=== PATIENT | female | born 1970 | race Caucasian/White ===

== ENCOUNTER 2020-12-28 22:29 | Inpatient (IN) | payer MEDICAID ==
[~2020-12-28] VITALS: Ht 162.6 cm; Wt 77.1 kg
[~2020-12-28 22:29] MED LIST: INSU100V28 IJ
[2020-12-28] MEDS ORDERED: MORPHINE SULFATE 4 MG/ML CPJ (NOT FOR IM USE) IV STA (23:25)
[2020-12-28] MEDS ORDERED: ONDANSETRON HCL 4MG/2ML INJ IV STA (23:25)
[2020-12-28] MEDS ORDERED: VANCOMYCIN 1 G PREMIX 200 ML IV ONE (23:30)
[2020-12-28] MEDS ORDERED: CLINDAMYCIN 600 MG in DEXTROSE 5% WATER 50 ML IV ONE (23:30)
[2020-12-28] MEDS ORDERED: PIPERACILLIN/TAZ 3.375G PREMIX 50 ML IV ONE (23:30)
[2020-12-28] MEDS ORDERED: SODIUM CHLORIDE 0.9% 1,000 ML IV ONE ×2 (23:30)
[2020-12-28 23:56] LABS: BG BASE EXCESS 2.4 mmol/L (-2.0-2.0); BG CARBOXYHEMOGLOBIN 0.2 % (0.5-1.5); BG DEOXYHEMOGLOBIN 3.8 % (0.0-5.0); BG FRACTION INSPIRED OXYGEN 21; BG METHEMOGLOBIN 0.1 % (0.0-1.5); BG OXYGEN SATURATION 96.2 % (92.0-98.5); BG OXYHEMOGLOBIN 95.9 % (94.0-97.0); BG PCO2 41.7 mmHg (35.0-45.0); BG PH 7.429 (7.350-7.450); BG PO2 86.1 mmHg (75.0-100.0); BG SAMPLE SITE RIGHT RADIAL; BG TOTAL HEMOGLOBIN 9.7 g/dL (12.0-18.0); BG VENT MODE ROOM AIR
[2020-12-29] MEDS ORDERED: CLINDAMYCIN 600MG PREMIX 50 ML IV SCH
[2020-12-29 00:08] LABS: BASOPHILS % 0.7 % (0.0-2.0); EOSINOPHILS % 0.8 % (0.0-5.0); HEMOGLOBIN. 10.1 g/dL (12.0-16.0); LYMPHOCYTES % 7.8 % (20.0-50.0); MEAN CORPUSCULAR HEMOGLOBIN 29.6 pg (28.0-32.0); MEAN CORPUSCULAR VOLUME 88.1 fL (81.0-99.0); MONOCYTES % 5.5 % (2.0-8.0); NEUTROPHILS % 85.2 % (40.0-76.0); PLATELET 259 x1000/uL (130-400); RED CELL DISTRIBUTION WIDTH 13.4 % (11.6-14.6)
[2020-12-29 00:14] LABS: CHLORIDE 98 mEq/L (98-107)
[2020-12-29 00:17] LABS: INR 1.1; PROTHROMBIN TIME 11.8 sec (9.6-11.0)
[2020-12-29 00:21] LABS: BETA HYDROXYBUTYRATE 0.2 mMol/L (0.0-0.3)
[2020-12-29 01:00] LABS: CLARITY URINE CLOUDY (CLEAR); COLOR URINE ORANGE (YELLOW); KETONES URINE NEGATIVE (NEGATIVE); LEUKOCYTE ESTERASE URINE NEGATIVE (NEGATIVE); NITRITE URINE NEGATIVE (NEGATIVE); OCCULT BLOOD URINE 3+ (NEGATIVE); PH URINE 6.5 (4.5-8.0); PROTEIN URINE 2+ (NEGATIVE); SPECIFIC GRAVITY URINE 1.028 (1.005-1.030); UROBILINOGEN URINE 0.2 E.U./dL (0.2-1.0)
[2020-12-29] MEDS ORDERED: IOHEXOL-300 100 ML BOTTLE ONE (01:43)
[2020-12-29] MEDS ORDERED: LORAZEPAM 2MG/ML CPJ IV PRN (08:30)
[2020-12-29] MEDS ORDERED: DEXTROSE 50% WATER 50ML SYRINGE IV PRN (08:30)
[2020-12-29] MEDS ORDERED: GUAIFENESIN 200MG/10ML SUGAR FREE UDC PO PRN (08:30)
[2020-12-29] MEDS ORDERED: MAGNESIUM/ALUMINUM HYDROXIDE/SIMETHICONE 30ML UDC PO PRN (08:30)
[2020-12-29] MEDS ORDERED: VANCOMYCIN 1 G PREMIX 200 ML IV SCH (08:30)
[2020-12-29] MEDS ORDERED: IPRATROPIUM/ALBUTEROL 0.5-3(2.5)MG/3ML NEB HHN PRN (08:30)
[2020-12-29] MEDS ORDERED: CLONIDINE 0.1MG TABLET PO PRN (08:30)
[2020-12-29] MEDS ORDERED: ACETAMINOPHEN 325MG TABLET PO PRN (08:30)
[2020-12-29] MEDS ORDERED: HYDRALAZINE 20MG/ML VIAL IV PRN (08:30)
[2020-12-29] MEDS ORDERED: ONDANSETRON HCL 4MG/2ML INJ IV PRN (08:30)
[2020-12-29] MEDS ORDERED: DOCUSATE SODIUM 100MG CAPSULE PO PRN (08:30)
[2020-12-29] MEDS ORDERED: DIPHENHYDRAMINE 50MG/ML VIAL IV PRN (08:30)
[2020-12-29] MEDS ORDERED: ENOXAPARIN 40MG/0.4ML SYR SUBCUT SCH (09:00)
[2020-12-29] MEDS ORDERED: PIPERACILLIN/TAZ 3.375G PREMIX 50 ML IV SCH (09:00)
[2020-12-29] MEDS: SODIUM CHLORIDE 0.45% 1,000 ML IV SCH ×2 (09:39→21:02)
[2020-12-29] MEDS: MORPHINE SULFATE 2 MG/ML CPJ (NOT FOR IM USE) IV PRN (09:40)
[2020-12-29] MEDS: INSULIN LISPRO 100 UNITS/ML SUBCUT SCH ×4 (09:41→21:00)
[2020-12-29] MEDS: BLOOD SUGAR DIAGNOSTIC STRIP TEST SCH ×4 (09:41→21:01)
[2020-12-29] MEDS ORDERED: INSULIN GLARGINE UD 100 UNITS/ML SYR SUBCUT SCH (10:00)
[2020-12-29] MEDS: SODIUM CHLORIDE 0.9% INJ 3ML FLUSH IVF SCH ×2 (14:26→21:30)
[2020-12-29] MEDS: HYDROCODONE/ACETAMINOPHEN 5/325MG TABLET PO PRN ×2 (15:50→21:31)
[2020-12-29 16:00] VITALS: BP 149/71
[2020-12-29] MEDS ORDERED: SORBITOL 70% SOLN 30ML PO NR ×2 (16:00→20:00)
[2020-12-29 20:00] VITALS: BP 114/61
[2020-12-29] MEDS: PIPERACILLIN/TAZOBACTAM 3.375 G in DEXT 5% WATER 100 ML IV SCH (20:58)
[2020-12-29] MEDS: VANCOMYCIN 1 G PREMIX 200 ML IV SCH (23:46)
[2020-12-30] VITALS: BP 128/66
[2020-12-30] MEDS: PIPERACILLIN/TAZOBACTAM 3.375 G in DEXT 5% WATER 100 ML IV SCH ×4 (02:51→21:02)
[2020-12-30 04:00] VITALS: BP 130/71
[2020-12-30] MEDS ORDERED: BISACODYL 5MG TABLET PO PRN (05:30)
[2020-12-30] MEDS ORDERED: METOCLOPRAMIDE HCL 10MG/2ML VIAL IV NR ×2 (05:45→09:00)
[2020-12-30] MEDS: BLOOD SUGAR DIAGNOSTIC STRIP TEST SCH ×4 (05:54→20:31)
[2020-12-30 05:59] LABS: INR 1.1; PROTHROMBIN TIME 11.9 sec (9.6-11.0)
[2020-12-30] MEDS ORDERED: BISACODYL 5MG TABLET PO NR (06:00)
[2020-12-30] MEDS ORDERED: SORBITOL 70% SOLN 30ML PO NR (06:00)
[2020-12-30 06:06] LABS: CHLORIDE 106 mEq/L (98-107)
[2020-12-30] MEDS: SODIUM CHLORIDE 0.9% INJ 3ML FLUSH IVF SCH ×3 (06:07→21:03)
[2020-12-30] MEDS: INSULIN LISPRO 100 UNITS/ML SUBCUT SCH ×4 (06:07→21:02)
[2020-12-30 08:00] VITALS: BP 141/71
[2020-12-30 09:00] LABS: BASOPHILS % 0.3 % (0.0-2.0); EOSINOPHILS % 0.8 % (0.0-5.0); HEMATOCRIT. 26.8 % (36.0-48.0); LYMPHOCYTES % 10.1 % (20.0-50.0); MEAN CORPUSCULAR HEMOGLOBIN 28.7 pg (28.0-32.0); MEAN CORPUSCULAR VOLUME 85.5 fL (81.0-99.0); MEAN PLATELET VOLUME 8.2 fl (7.4-10.4); MONOCYTES % 6.6 % (2.0-8.0); NEUTROPHILS % 82.2 % (40.0-76.0); PLATELET 292 x1000/uL (130-400); RED BLOOD CELL COUNT 3.13 mill/uL (4.2-5.4); RED CELL DISTRIBUTION WIDTH 13.6 % (11.6-14.6)
[2020-12-30 10:38] LABS: HCG SCREEN NEGATIVE
[2020-12-30] MEDS: SODIUM CHLORIDE 0.45% 1,000 ML IV SCH (11:38)
[2020-12-30] MEDS ORDERED: SIMETHICONE 40 MG/0.6 ML 30ML ONE (11:48)
[2020-12-30 12:00] VITALS: BP 148/90
[2020-12-30] MEDS: VANCOMYCIN 1 G PREMIX 200 ML IV SCH (12:00)
[2020-12-30] MEDS: INSULIN GLARGINE UD 100 UNITS/ML SYR SUBCUT SCH (13:00)
[2020-12-30] MEDS ORDERED: MIDAZOLAM HCL 5 MG/5 ML VIAL ONE (13:23)
[2020-12-30] MEDS ORDERED: FENTANYL CITRATE/PF 50MCG/ML 2ML VIAL ONE (13:24)
[2020-12-30] MEDS ORDERED: FENTANYL CITRATE/PF 50MCG/ML 2ML VIAL IV PRN (13:35)
[2020-12-30] MEDS ORDERED: MIDAZOLAM HCL 5 MG/5 ML VIAL IV PRN (13:36)
[2020-12-30] MEDS ORDERED: DIAZEPAM 5 MG/ML 2ML CPJ IV PRN (13:39)
[2020-12-30] MEDS ORDERED: DIAZEPAM 5 MG/ML 2ML CPJ ONE (13:47)
[2020-12-30 16:00] VITALS: BP 115/71
[2020-12-30 20:00] VITALS: BP 153/72
[2020-12-30] MEDS: HYDROCODONE/ACETAMINOPHEN 5/325MG TABLET PO PRN (21:19)
[2020-12-31] VITALS: BP 150/82
[2020-12-31] MEDS: PIPERACILLIN/TAZOBACTAM 3.375 G in DEXT 5% WATER 100 ML IV SCH ×4 (02:15→21:55)
[2020-12-31 03:36] LABS: BASOPHILS % 0.6 % (0.0-2.0); EOSINOPHILS % 2.3 % (0.0-5.0); HEMATOCRIT. 25.4 % (36.0-48.0); HEMOGLOBIN. 8.5 g/dL (12.0-16.0); LYMPHOCYTES % 18.2 % (20.0-50.0); MEAN CORPUSCULAR HEMOGLOBIN 28.7 pg (28.0-32.0); MEAN CORPUSCULAR VOLUME 85.8 fL (81.0-99.0); MEAN PLATELET VOLUME 7.9 fl (7.4-10.4); MONOCYTES % 6.9 % (2.0-8.0); PLATELET 266 x1000/uL (130-400); RED BLOOD CELL COUNT 2.96 mill/uL (4.2-5.4); RED CELL DISTRIBUTION WIDTH 13.7 % (11.6-14.6)
[2020-12-31 04:00] VITALS: BP 159/72
[2020-12-31] MEDS: VANCOMYCIN 1 G PREMIX 200 ML IV SCH (05:18)
[2020-12-31] MEDS: SODIUM CHLORIDE 0.9% INJ 3ML FLUSH IVF SCH ×3 (05:18→22:00)
[2020-12-31] MEDS: HYDROCODONE/ACETAMINOPHEN 5/325MG TABLET PO PRN (05:24)
[2020-12-31] MEDS: BLOOD SUGAR DIAGNOSTIC STRIP TEST SCH ×4 (07:01→21:02)
[2020-12-31] MEDS: INSULIN LISPRO 100 UNITS/ML SUBCUT SCH ×4 (07:10→22:01)
[2020-12-31 08:00] VITALS: BP 150/67
[2020-12-31] MEDS: SODIUM CHLORIDE 0.45% 1,000 ML IV SCH ×2 (08:53→15:51)
[2020-12-31] MEDS: INSULIN GLARGINE UD 100 UNITS/ML SYR SUBCUT SCH (10:09)
[2020-12-31] MEDS ORDERED: LIDOCAINE HCL 1% 20ML VIAL (Pyxis) INJ INFIL NR (11:30)
[2020-12-31 12:00] VITALS: BP 155/80
[2020-12-31 16:00] VITALS: BP 143/73
[2020-12-31 20:00] VITALS: BP 146/65
[2020-12-31] MEDS: MORPHINE SULFATE 2 MG/ML CPJ (NOT FOR IM USE) IV PRN (22:12)
[2021-01-01] VITALS: BP 152/70
[2021-01-01] MEDS: PIPERACILLIN/TAZOBACTAM 3.375 G in DEXT 5% WATER 100 ML IV SCH ×2 (02:16→08:42)
[2021-01-01] MEDS: HYDROCODONE/ACETAMINOPHEN 5/325MG TABLET PO PRN (03:47)
[2021-01-01 04:00] VITALS: BP 152/56
[2021-01-01] MEDS ORDERED: VANCOMYCIN 1 G PREMIX 200 ML IV SCH (06:00)
[2021-01-01] MEDS: BLOOD SUGAR DIAGNOSTIC STRIP TEST SCH ×2 (06:45→12:21)
[2021-01-01] MEDS: SODIUM CHLORIDE 0.9% INJ 3ML FLUSH IVF SCH (06:46)
[2021-01-01] MEDS: INSULIN LISPRO 100 UNITS/ML SUBCUT SCH ×2 (06:47→12:21)
[2021-01-01 08:00] VITALS: BP 169/93
[2021-01-01 09:12] LABS: IMMUNOGLOBULIN A 595 mg/dL (87-352); IMMUNOGLOBULIN G 1076 mg/dL (586-1602)
[2021-01-01] MEDS: INSULIN GLARGINE UD 100 UNITS/ML SYR SUBCUT SCH (09:29)
[2021-01-01 12:00] VITALS: BP 160/78
[2021-01-01 12:56] VITALS: BP 160/93
[2021-01-01] MEDS ORDERED: INSULIN GLARGINE UD 100 UNITS/ML SYR SUBCUT SCH (22:00)
[2021-01-02 09:06] LABS: IMMUNOGLOBULIN G 1000 mg/dL (586-1602)
[2021-01-02 17:09] LABS: ANTI-MYELOPEROXIDASE AB < 9.0 U/mL (0.0-9.0); ANTI-PROTEINASE 3 ABS < 3.5 U/mL (0.0-3.5)
[2021-01-03 15:06] LABS: ATYPICAL pANCA <1:20 titer (Neg:<1:20)
[2021-01-04 09:11] LABS: SACCHAROMYCES CEREVISIAE IGG 36.7 Units (0.0-24.9); SACCHAROMYCES CEREVISIAE IGM 52.4 Units (0.0-24.9)
[2021-01-04 09:11] LABS: SACCHAROMYCES CEREVISIAE IGG 31.8 Units (0.0-24.9); SACCHAROMYCES CEREVISIAE IGM 55.6 Units (0.0-24.9)
[2021-01-04 13:07] LABS: ATYPICAL P-ANCA <1:20 titer (Neg:<1:20); CYTOPLASMIC C-ANCA <1:20 titer (Neg:<1:20); PERINUCLEAR P-ANCA <1:20 titer (Neg:<1:20)
[2021-01-04 13:07] LABS: ATYPICAL pANCA <1:20 titer (Neg:<1:20)
== END 2021-01-01 13:55 | disposition home health service (06) | DRG 254 ==
LOC: ER 22:29 → 5WST 12-29 13:42 → ENRESERV 12-29 13:50
PROVIDERS: ADMIT Internal Medicine; ATTEND Internal Medicine
PROC: 0DBB8ZX Excision of Ileum, Via Natural or Artificial Opening Endoscopic, Diagnostic (ICD-10-PCS; principal; 2020-12-30)
PROC: 0DBE8ZX Excision of Large Intestine, Via Natural or Artificial Opening Endoscopic, Diagnostic (ICD-10-PCS; 2020-12-30)
PROC: 0Y910ZZ Drainage of Left Buttock, Open Approach (ICD-10-PCS; 2020-12-31)
DX: K61.2 Anorectal abscess (principal); R65.11 Systemic inflammatory response syndrome (SIRS) of non-infectious origin with acute organ dysfunction; E11.01 Type 2 diabetes mellitus with hyperosmolarity with coma; K63.3 Ulcer of intestine; R64 Cachexia; E44.0 Moderate protein-calorie malnutrition; K76.0 Fatty (change of) liver, not elsewhere classified; C52 Malignant neoplasm of vagina; K50.112 Crohn's disease of large intestine with intestinal obstruction; E11.65 Type 2 diabetes mellitus with hyperglycemia; E87.1 Hypo-osmolality and hyponatremia; S91.302A Unspecified open wound, left foot, initial encounter; D64.9 Anemia, unspecified; I10 Essential (primary) hypertension; J45.909 Unspecified asthma, uncomplicated; F32.9 Major depressive disorder, single episode, unspecified; L02.31 Cutaneous abscess of buttock; K80.20 Calculus of gallbladder without cholecystitis without obstruction; Z60.2 Problems related to living alone; Z20.822 Contact with and (suspected) exposure to COVID-19; Z91.19 Patient's noncompliance with other medical treatment and regimen; Z79.899 Other long term (current) drug therapy; Z79.4 Long term (current) use of insulin; Z68.29 Body mass index [BMI] 29.0-29.9, adult; Z90.49 Acquired absence of other specified parts of digestive tract; Z87.442 Personal history of urinary calculi; X58.XXXA Exposure to other specified factors, initial encounter; Y93.89 Activity, other specified; Y92.89 Other specified places as the place of occurrence of the external cause; Y99.8 Other external cause status; K63.5 Polyp of colon
CPT/HCPCS: 36415; 36600; 71045; 74177; 80048; 80053; 80202; 81003; 82010; 82375; 82378; 82784; 82805; 82962; 83036; 83520; 83605; 84145; 84703; 85025; 85651; 86140; 86256; 86671; 87426; 88305; 93005; 99291; J1650; J1815; J2250; J2270; J2405; J2543; J2765; J3010; J3370; J3490; J7030; J7040; J7060; Q9967